=== PATIENT | female | born 1980 | race Caucasian/White ===

== ENCOUNTER 2018-09-25 09:27 | Observation (INO) ==
[2018-09-25] MEDS ORDERED: Aspirin 81 MG TAB.CHEW PO ONE (09:53)
--- NOTE | 2018-09-25 10:06 | Emergency Department Note ---
Disposition Clinical Impression: Chest pain Qualifiers: Chest pain type: unspecified Qualified Code(s): R07.9 - Chest pain, unspecified Disposition: Admitted As Inpatient Condition: Fair Referrals: NONE,PCP [Non-Partnered Physician] - Time of Disposition: 11:59 Chest Pain HPI - General Chief Complaint: ED Chest Pain Stated Complaint: chest pain Time Seen by Provider: 09/25/18 09:33 Source: patient Mode of arrival: ambulatory Limitations: no limitations Vital Signs Reviewed: Yes Nursing Notes Reviewed: Yes - History of Present Illness HPI Narrative: 37-year-old female history of cardiomyopathy as well as hypercholesterolemia and CHF presents to the emergency department for chest pain is been going on for 3 days. Patient states it is left-sided radiating into the left arm said it has been unchanged and continued for 3 days. She does see cardiology last saw them one year ago where she did have heart catheterization that showed 15% blockage and ultrasound prior to that that showed normal EF and normal size chambers. Patient had cardiomyopathy after delivering her child at 19 years old has not lee d any problems since then. She does not take any medications including a statin, aspirin, nitroglycerin. She has not seen her java websphere developer since that time. Said that she does not like physicians and does not like going to them. Patient describes the chest pain as 4 out of 10 radiating to left arm dull ache nothing seems to make a better where she is not short of breath and there is no exertional dyspnea. Otherwise no complaints including fevers, chills, nausea, vomiting, shortness of breath, abdominal pain, headache, blurry vision, neck pain, back pain, change in bowel monitor, pain with urination, pain or tingling in any arms or legs or generalized weakness. Severity scale (1-10): 8 - Related Data Home Medications Medication Instructions Recorded Confirmed Aspirin 81 mg PO DAILY 03/15/17 03/15/17 Isosorbide MONOnitrate (24 HR) 30 mg PO DAILY 03/15/17 03/15/17 [Imdur] Previous Rx's Medication Instructions Recorded Albuterol Sulfate [Albuterol 2 puff IH QID #1 inhaler 07/17/18 Inhaler] Azithromycin [Azithromycin 6-Tab 250 mg PO PER PKG DI #6 tab 07/17/18 Pack] Benzonatate [Tessalon] 200 mg PO TID PRN #20 capsule 07/17/18 predniSONE [PredniSONE] 20 mg PO BID #10 tablet 07/17/18 Allergies Allergy/AdvReac Type Severity Reaction Status Date / Time No Known Allergies Allergy Verified 07/17/18 16:03 All systems ED: reviewed and negative except as stated. 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 - Social History Smoking Status: Current every day smoker Alcohol use: Reports: none Drug use: Reports: marijuana Physical Exam - General Limitations: no limitations General appearance: alert - Head Head exam: atraumatic, normocephalic, normal inspection - Eye Eye exam: Present: normal appearance, PERRL, EOMI - ENT ENT exam: normal exam, normal oropharynx, mucous membranes moist - Neck Neck exam: Present: normal inspection, full ROM, trachea midline - Chest Chest inspection: Present: normal inspection, symmetric chest wall rise - Respiratory Respiratory exam: Present: normal lung sounds bilaterally. Absent: respiratory distress, wheezes, stridor, accessory muscle use - Cardiovascular Cardiovascular exam: Present: regular rate, normal rhythm, normal heart sounds - Abdominal Exam Abdominal exam: Present: soft, Non-Tender, normal bowel sounds. Absent: tenderness, distention, guarding, rebound, rigidity - Extremities Exam Extremities exam: Present: normal inspection, full ROM. Absent: tenderness, pedal edema - Expanded Lower Extremity Exam Neurovascular/Tendon exam: Absent: motor deficit, sensory deficit, tendon deficit - Back Exam Back exam: Present: normal inspection, full ROM. Absent: tenderness, CVA tenderness (R), CVA tenderness (L) - Neurological Exam Neurological exam: Present: alert, oriented X3 - Skin Skin exam: Present: warm, dry, intact, normal color Course Course Narrative: Liter normal chest pain workup including CBC, BMP, troponin as well as chest x- ray EKG and we will give patient full dose aspirin. Disposition pending results - Consultations Consultation #1: Spoke with on-call cardiology who said due to patient not having follow-up she is missed the last 3 or 4 appointment and no showed they feel they getting a work. The hospital would be more beneficial than doing an outpatient follow-up. Patient will be admitted to the hospital service with cardiology consult they recommend echocardiogram to be done. Time: 11:25 Vital Signs Temperature 97.9 F 09/25/18 09:29 Pulse Rate 19 09/25/18 09:29 Respiratory Rate 68 09/25/18 09:29 Blood Pressure 128/77 09/25/18 09:29 O2 Sat by Pulse Oximetry 98 09/25/18 09:29 Temperature 97.9 F 09/25/18 09:41 Pulse Rate 19 09/25/18 09:41 Respiratory Rate 68 09/25/18 09:41 Blood Pressure 128/77 09/25/18 09:41 O2 Sat by Pulse Oximetry 98 09/25/18 09:41 Oxygen Delivery Oxygen Delivery Room Air Chest Pain - MDM Narrative Medical decision making narrative: 37-year-old female here with chest pain. All labs came back negative troponin negative chest x-ray and EKG had no acute findings. I spoke with the java websphere developer as she does followed by cardiology they recommended admission for echocardiogram and further cardiac workup due to patient having very poor follow-up and missing appointments recently. I spoke with the patient she does agree at this plan as well per patient did receive aspirin. She is not having much chest pain currently at this times a did not give him nitroglycerin. Patient is stable. There is no tachycardia no shortness of breath no signs of pulmonary embolism so d-dimer and CT and she will were not ordered. I spoke with the hospitalist Dr. Beebe who agreed to admit the patient to their service. Patient's admitted in stable condition does have cardiac consultation ordered. Chest X-Ray 09/25/18 09:35 IMPRESSION: No acute cardiopulmonary abnormality. D/ / Mike Mendez MD / Mike Mendez MD Interpreting Provider: Mike Mendez MD - Medical Records Medical records reviewed: Yes I reviewed the patient's medical records. - Lab Data Lab results reviewed: Yes I reviewed the patient's lab results. Result diagrams: 09/25/18 10:27 09/25/18 10:27 Lab Results 09/25/18 09/25/18 Range/Units 10:27 10:27 WBC 5.6 (4.3-11.1) K/mcL RBC 4.04 (3.82-4.97) M/mcL Hgb 13.7 (11.5-15.4) g/dL Hct 40.4 (35.3-44.9) % MCV 100.0 (83.0-100.0) fL MCH 33.9 H (28.0-33.3) pg MCHC 33.9 (31.6-35.5) g/dL RDW 12.1 (11.5-14.5) % Plt Count 144 (140-400) K/mcL MPV 9.5 (9.4-12.4) fL Immature Gran % 0.2 (0-4) % Seg Neutrophils % 56.6 % Lymphocytes % 33.0 % Monocytes % 7.9 % Eosinophils % 1.6 % Basophils % 0.7 % Neutrophils # 3.2 (1.6-8.9) K/mcL Lymphocytes # 1.8 (0.6-4.6) K/mcL Monocytes # 0.4 (0.0-1.3) K/mcL Eosinophils # 0.1 (0.0-0.6) K/mcL Basophils # 0.0 (0.0-0.2) K/mcL Sodium 140 (136-145) mEq/L Potassium 3.7 (3.5-5.1) mEq/L Chloride 106 (98-107) mEq/L Carbon Dioxide 26 (23-29) mEq/L BUN 13 (6-20) mg/dL Creatinine 0.87 (0.60-1.20) mg/dL Est GFR ( Amer) > 60 (> 60) Est GFR (Non-Af Amer) > 60 (> 60) BUN/Creatinine Ratio 15 (6-26) Glucose 82 (70-105) mg/dL Calculated Osmolality 289 (280-300) Calcium 9.0 (8.6-10.3) mg/dL Troponin I < 0.03 (< 0.04) ng/mL Lipase 14 (11-82) Units/L - Radiology Data Radiology results reviewed: Yes I reviewed the patient's radiology results. - EKG Data EKG attestation: Yes I reviewed and interpreted this EKG. EKG results narrative: EKG done at 0 945 review myself and the attending shows sinus rhythm at a rate of 63, HI interval 126, QRS 12, QTC 499. Is no acute ST changes no acute T-wave changes nor sent ischemia. No hypertrophy, heart and, heart block. No WPW/Brugada/HOCM. EKG otherwise unchanged when compared with old one done 02/02/80 Heart Score - Score History: Moderately Suspicious EKG: Normal Age: Less than 45 Risk Factors: Equal/Greater than 3 risk factor or history of atherosclerotic disease Troponin: Less than normal limit HEART Score Total: 3
--- NOTE | 2018-09-25 10:21 | Emergency Department Note ---
Disposition Clinical Impression: Chest pain Disposition: Admitted As Inpatient Condition: Fair General Adult HPI - General Chief complaint: ED Chest Pain Stated complaint: chest pain Time Seen by Provider: 09/25/18 09:33 Source: patient Mode of arrival: ambulatory Limitations: no limitations Nursing Notes Reviewed: Yes Vital Signs Reviewed: Yes - History of Present Illness Pain Scale: 8 - Related Data Home Medications Medication Instructions Recorded Confirmed Multivitamin [One Daily 1 tab PO DAILY 09/25/18 09/25/18 Multivitamin] Multivitamin/Folic Acid/Biotin 1 tab PO DAILY 09/25/18 09/25/18 [Hair, Skin and Nails Tablet] RX: Ferrous Sulfate 325 mg PO DAILY 09/25/18 09/25/18 Allergies Allergy/AdvReac Type Severity Reaction Status Date / Time No Known Allergies Allergy Verified 09/25/18 12:54 Past Medical History - Past Medical History Medical history: Reports: CHF, other Psychiatric history: Reports: anxiety 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 - Social History Smoking Status: Current every day smoker Smokeless Tobacco Status: No Alcohol use: Reports: none Drug use: Reports: marijuana Physical Exam - General Limitations: no limitations General appearance: alert Course Vital Signs Temperature 97.9 F 09/25/18 09:29 Pulse Rate 19 09/25/18 09:29 Respiratory Rate 68 09/25/18 09:29 Blood Pressure 128/77 09/25/18 09:29 O2 Sat by Pulse Oximetry 98 09/25/18 09:29 Temperature 98.5 F 09/25/18 15:59 Pulse Rate 59 09/25/18 15:59 Respiratory Rate 18 09/25/18 15:59 Blood Pressure 136/78 09/25/18 15:59 O2 Sat by Pulse Oximetry 100 09/25/18 15:59 Oxygen Delivery Oxygen Delivery Room Air Medical Decision Making - [facility] Narrative Medical decision making narrative: Chest X-Ray 09/25/18 09:35 IMPRESSION: No acute cardiopulmonary abnormality. D/ / Mike Mendez MD / Mike Mendez MD Interpreting Provider: Mike Mendez MD 138 hours: Spoke with cardiology they like to admit the patient to the hospital she has been noncompliant with follow-up. Patient's in agreement with this plan. We will page hospitalist for admission with cardiology consult. - Lab Data Result diagrams: 09/25/18 10:27 09/25/18 10:27 Lab Results 09/25/18 09/25/18 Range/Units 10:27 10:27 WBC 5.6 (4.3-11.1) K/mcL RBC 4.04 (3.82-4.97) M/mcL Hgb 13.7 (11.5-15.4) g/dL Hct 40.4 (35.3-44.9) % MCV 100.0 (83.0-100.0) fL MCH 33.9 H (28.0-33.3) pg MCHC 33.9 (31.6-35.5) g/dL RDW 12.1 (11.5-14.5) % Plt Count 144 (140-400) K/mcL MPV 9.5 (9.4-12.4) fL Immature Gran % 0.2 (0-4) % Seg Neutrophils % 56.6 % Lymphocytes % 33.0 % Monocytes % 7.9 % Eosinophils % 1.6 % Basophils % 0.7 % Neutrophils # 3.2 (1.6-8.9) K/mcL Lymphocytes # 1.8 (0.6-4.6) K/mcL Monocytes # 0.4 (0.0-1.3) K/mcL Eosinophils # 0.1 (0.0-0.6) K/mcL Basophils # 0.0 (0.0-0.2) K/mcL Sodium 140 (136-145) mEq/L Potassium 3.7 (3.5-5.1) mEq/L Chloride 106 (98-107) mEq/L Carbon Dioxide 26 (23-29) mEq/L BUN 13 (6-20) mg/dL Creatinine 0.87 (0.60-1.20) mg/dL Est GFR ( Amer) > 60 (> 60) Est GFR (Non-Af Amer) > 60 (> 60) BUN/Creatinine Ratio 15 (6-26) Glucose 82 (70-105) mg/dL Calculated Osmolality 289 (280-300) Calcium 9.0 (8.6-10.3) mg/dL Troponin I < 0.03 (< 0.04) ng/mL Lipase 14 (11-82) Units/L Attestation Statement - Attestation Attestation: This documentation is done with the assistance of Dragon dictation. Despite efforts made to ensure accuracy, there may be inaccuracies in occupational therapy supervisor or spelling and typographical errors. I examined this patient and my medical decision-making was reviewed with the Resident Physician. I agree with the documented findings, disposition and treatment plan as described except to the extent set forth below. Patient seen and evaluated today by Dr. Hale and myself, I agree with his evaluation and management plan, supervise care the patient's stay. Patient's had intermittent chest pain. She except for history with cardiomyopathy after and cardiac arrest. She is a bit anxious today but seems comfortable. Regular cardiac workup on her and reassess. She also seen cardiology but she is not happy with the hot header operator cc and somewhat talked her about that also should she need outpatient follow-up. Chest X-Ray 09/25/18 09:35
[2018-09-25 10:53] LABS: Basophils % 0.7 %; Eosinophils # 0.1 K/mcL (0.0-0.6); Eosinophils % 1.6 %; Hematocrit 40.4 % (35.3-44.9); Hemoglobin 13.7 g/dL (11.5-15.4); Immature Granulocytes % 0.2 % (0-4); Lymphocytes # 1.8 K/mcL (0.6-4.6); Mean Corpuscular HGB Conc 33.9 g/dL (31.6-35.5); Mean Corpuscular Hemoglobin 33.9 pg (28.0-33.3); Mean Platelet Volume 9.5 fL (9.4-12.4); Monocytes # 0.4 K/mcL (0.0-1.3); Monocytes % 7.9 %; Neutrophils # 3.2 K/mcL (1.6-8.9); Platelet Count 144 K/mcL (140-400); Red Blood Count 4.04 M/mcL (3.82-4.97); Red Cell Distribution Width 12.1 % (11.5-14.5); Segmented Neutrophils % 56.6 %
[2018-09-25 11:14] LABS: BUN/Creatinine Ratio 15 (6-26); Blood Urea Nitrogen 13 mg/dL (6-20); Carbon Dioxide 26 mEq/L (23-29); Chloride 106 mEq/L (98-107); Glucose 82 mg/dL (70-105); Lipase 14 Units/L (11-82); Osmolality,Calculated 289 (280-300); Potassium 3.7 mEq/L (3.5-5.1); Sodium 140 mEq/L (136-145); Troponin I < 0.03 ng/mL (< 0.04); eGFR For Non-African Americans > 60 (> 60)
--- NOTE | 2018-09-25 12:38 | Cardiology Consult Note ---
<Johanna Moralez Myra - Last Filed: 09/25/18 13:19> Date of Encounter: 09/25/18 Time of Encounter: 12:30 Assessment and Plan (1) Chest pain Current Visit: Yes Status: Acute Atypical chest pain symptoms. Troponin negative. No ST/T wave abnormalities. 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 Recent LHC February 2017: minimal, non-obstructive CAD. Will start asa and statin. TTE 11/2016: EF 60%, normal wall motion. Continue to trend troponin, ECGs, and observe telemetry overnight. Recommend TTE to evaluate structure and function. Will continue to follow. Qualifiers: Chest pain type: unspecified Qualified Code(s): R07.9 - Chest pain, unspecified (2) Hx of cardiomyopathy Current Visit: Yes Status: Acute Hx of cardiomyopathy 18 years ago, reports was hospitalized for nearly 45 days. Did not follow-up with Cardiology until 2011, underwent NST at Hospital in [place], nuclear stress test negative, gated EF=56%. Recent evaluation 2016; TTE 60% with normal wall motion, no significant valvular dysfunction. LHC demonstrated minimal one vessel CAD in February 2017. Does not take any routine medications. Appears euvolemic upon exam. Plan as stated above. Discussion w patient/family: The assessment and plan as outlined above was discussed with the patient and/or family members who expressed understanding and agreement. All questions were answered. Thank you for involving us in the care of your patient. Please call with any questions. The patient will be discussed and reviewed with Dr. Hennessy, changes to be made accordingly. History of Present Illness Consult date: 09/25/18 Requesting physician: Edwin Hale Consult reason: Chest pain Chief complaint: Chest pain History of present illness: Ms. Guadalupe is a 37 year old female with PMHx significant of recovered cardiomyopathy (18 years ago), tobacco and marijuana abuse who presented to the ED with complaints of chest pain that initially started x3 days ago. Chest discomfort described as retrosternal chest "soreness/achyness" that worsens with physical activity and emotional stress. Symptoms improve with rest (1-2 days). Reports she usually "bounces back" after these episodes but did not which prompted ED evaluation. Underwent thorough cardiac work-up February of 2017 with similar symptoms, felt to be noncardiac in etiology. Associated symptoms include facial swelling which typically improves as the day progresses. Upon arrival to ED, troponin negative. ECG without ST/T wave abnormalities. She is pain free upon exam. Only takes prn Naprosyn. Recent CV testing: Lexiscan nuclear 10/25/11: normal lexiscan myocardial perfusion study, gated EF=56% TTE 12/14/16: LVEF 50-55%, no significant valvular dysfunction LHC 04/14/18: minimal non-obstructive CAD (15% pRCA) Past Med Surg Social Fam HX - Past Medical History Attestation: Yes The following information was validated with the patient. Source: patient Medical history: cardiomyopathy (recovered (x18 years ago)), other Additional medical history: cardiomyopathy Psychiatric history: anxiety - Past Surgical History Additional surgical history: TUBAL LIGATION heart cath - Social History Smoking Status: Current every day smoker Smokeless Tobacco Status: No Alcohol use: none Drug use: marijuana - Family History Mother Living Status: Still Living Hx Family Cardiac Disorders: Yes (CAD) Father History Unknown: Yes Brother Living Status: Still Living Medications and Allergies Ferrous Sulfate 325 mg PO DAILY 09/25/18 [History] Multivitamin [One Daily Multivitamin] 1 tab PO DAILY 09/25/18 [History] Multivitamin/Folic Acid/Biotin [Hair, Skin and Nails Tablet] 1 tab PO DAILY 09/25/18 [History] Allergy/AdvReac Type Severity Reaction Status Date / Time No Known Allergies Allergy Verified 09/25/18 12:54 All Systems Review: The remainder of the systems were reviewed and are negative - Cardiovascular Cardiovascular: as per HPI Physical Examination Vital Signs, Last 4 Hours Temp Pulse Resp BP Pulse Ox 09/25/18 09:41 97.9 F 19 18 128/77 98 09/25/18 09:29 97.9 F 19 68 128/77 98 General: Conversant, No Apparent Distress HEENT: Atraumatic, Normocephaly, Mucus Membranes Moist Neck: No JVD, Normal carotid pulses Cardiac: Reg Rate and Rhythm, Normal S1 and S2, No Murmur Lungs: Normal Breath Sounds, No Wheeze, Rales, Rhonchi Neuro: Alert and responsive, No focal deficits noted Abdomen: Soft, Non-Tender Skin: No rashes noted on visualized skin Musculoskeletal: No Chest Wall Tenderness Extremities: No Clubbing, No Cyanosis, No Edema, Normal Pulses Results 09/25/18 10:27 09/25/18 10:27 Lab Results 09/25/18 09/25/18 10:27 10:27 WBC 5.6 Hgb 13.7 Hct 40.4 Plt Count 144 Sodium 140 Potassium 3.7 Chloride 106 Carbon Dioxide 26 BUN 13 Creatinine 0.87 Glucose 82 Calcium 9.0 Troponin I < 0.03 Lipase 14 - Imaging and Cardiology Echo: report reviewed Cardiac cath: report reviewed - EKG Interpretation EKG results cardiology: personally reviewed Consult Discharge Plan - Plan Referrals: NONE,PCP [Primary Care Provider] - <Khoi Hennessy - Last Filed: 09/25/18 16:35> Date of Encounter: 09/25/18 - Attending Attestation I have personally performed a face to face evaluation on this patient. I have reviewed and agree with the documented findings and care plan as documented by the EXTRACTING MACHINE OPERATOR. History and Exam by me shows: 37-year-old female with history of CAD and peripartum cardiomyopathy, presenting with atypical chest pain. Last cardiac catheter was 11/2016 revealing 15% proximal RCA disease. Recommend to trend troponins and obtain rest echocardiogram and exercise stress echocardiogram. Patient should be on aspirin 81 mg daily and moderate intensity statin. Counseled extensively on smoking cessation. Needs close cardiology follow-up. Thanks, Khoi Hennessy MD Assessment and Plan Discussion w patient/family: The assessment and plan as outlined above was discussed with the patient and/or family members who expressed understanding and agreement. All questions were answered. Thank you for involving us in the care of your patient. Please call with any questions. History of Present Illness History of present illness: Ms. Guadalupe is a 37 year old female All Systems Review: The remainder of the systems were reviewed and are negative Physical Examination Vital Signs, Last 4 Hours Temp Pulse Resp BP Pulse Ox 09/25/18 15:59 98.5 F 59 18 136/78 100 09/25/18 13:18 98.7 F 62 16 124/60 100 09/25/18 12:39 16 128/72 Results 09/25/18 10:27 09/25/18 10:27 Lab Results 09/25/18 09/25/18 09/25/18 10:27 10:27 14:45 WBC 5.6 Hgb 13.7 Hct 40.4 Plt Count 144 Sodium 140 Potassium 3.7 Chloride 106 Carbon Dioxide 26 BUN 13 Creatinine 0.87 Glucose 82 Calcium 9.0 Magnesium 1.6 Troponin I < 0.03 Lipase 14
--- NOTE | 2018-09-25 13:53 | Internal Med History&Physical ---
Date of Encounter: 09/25/18 Time of Encounter: 14:10 Internal Medicine - H&P: HPI Chief complaint: chest pain Admitted From: Home Plans for Post Hospital Care: Home History of present illness: Ms. Guadalupe is a 37 year old female with past medical history of cardiomyopathy, she reports cardiac arrest during labor 18 years ago, current smoker 11/2 PPD (started at 15 years old), and smokes THC. Pt presents with 3 day hx of chest pain. She states she does get CP from time to time off and on and they typically resolve without intervention. States this episode started about 3 days ago and has persisted hence why she came in to be evaluated. She states CP 8/p10 scale. She denies association with shortness. She states she does have [place] with increased activity at work and sometimes feels as though her heart is racing. Also states pain sometimes radiates to her left arm. she reports that she was on medication 18 years ago when she had the cardiac arrest but reports that her boyfriend at the time " told me I didn't need to take the meds so I stopped taking them." In ED WBC 5.6, Hgb 13.7, hct 40., plt 144. Na 140, K 3.7, BUN 13, Cr 0.87. Lipase 14. Chest x ray XR/XR chest 1V portable IMPRESSION: No acute cardiopulmonary abnormality. Past Med Surg Social Fam HX - Past Medical History Medical history: cardiomyopathy, other Additional medical history: cardiomyopathy Psychiatric history: anxiety - Past Surgical History Additional surgical history: TUBAL LIGATION heart cath - Social History Smoking Status: Current every day smoker Smokeless Tobacco Status: No Alcohol use: none Drug use: marijuana - Family History Mother Living Status: Still Living Hx Family Cardiac Disorders: Yes (CAD) Father History Unknown: Yes Brother Living Status: Still Living Internal Medicine - H&P: Meds Ferrous Sulfate 325 mg PO DAILY 09/25/18 [History] Multivitamin [One Daily Multivitamin] 1 tab PO DAILY 09/25/18 [History] Multivitamin/Folic Acid/Biotin [Hair, Skin and Nails Tablet] 1 tab PO DAILY 09/25/18 [History] Allergy/AdvReac Type Severity Reaction Status Date / Time No Known Allergies Allergy Verified 09/25/18 12:54 All Systems PM: A 10-system review of systems was performed and is negative for pertinent findings except as documented above in the HPI. - Constitutional Vitals: Temp Pulse Resp BP Pulse Ox 98.7 F 62 16 124/60 100 09/25/18 13:18 09/25/18 13:18 09/25/18 13:18 09/25/18 13:18 09/25/18 13:18 Exam: General: Conversant, No Apparent Distress, Alert and oriented x 3. HEENT: Atraumatic, Normocephaly, Mucus Membranes Moist Neck: No JVD, Normal carotid pulses Cardiac: Reg Rate and Rhythm, Normal S1 and S2, No Murmur Lungs: Normal Breath Sounds, No Wheeze, Rales, Rhonchi Neuro: Alert and responsive, No focal deficits noted Abdomen: Soft, Non-Tender Skin: No rashes noted on visualized skin Musculoskeletal: No Chest Wall Tenderness Extremities: No Clubbing, No Cyanosis, No Edema, Normal Pulses Internal Med - H&P Results - Labs CBC & Chem 7: 09/25/18 10:27 09/25/18 10:27 Labs: Short CBC 09/25/18 Range/Units 10:27 WBC 5.6 (4.3-11.1) K/mcL Hgb 13.7 (11.5-15.4) g/dL Hct 40.4 (35.3-44.9) % Plt Count 144 (140-400) K/mcL Neutrophils # 3.2 (1.6-8.9) K/mcL BMP 09/25/18 10:27 Sodium 140 Potassium 3.7 Chloride 106 Carbon Dioxide 26 BUN 13 Creatinine 0.87 Glucose 82 Calcium 9.0 Cardiac Enzymes 09/25/18 Range/Units 10:27 Troponin I < 0.03 (< 0.04) ng/mL - Impressions ITS Impressions Chest X-Ray 09/25/18 09:35 IMPRESSION: No acute cardiopulmonary abnormality. D/ / Mike Mendez MD / Mike Mendez MD Interpreting Provider: Mike Mendez MD - Assessment and plan (1) Chest pain Current Visit: Yes Status: Acute Assessment and plan: Pt seen by cardiology and recommend cycle troponin for now. Qualifiers: Chest pain type: unspecified Qualified Code(s): R07.9 - Chest pain, unspecified (2) Hx of cardiomyopathy Current Visit: Yes Status: Acute Assessment and plan: Hx of cardiomyopathy 18 years ago, reported that she was hospitalized for nearly 45 days. Did not follow-up with Cardiology until 2011, underwent nuclear stress test at Hospital in [place], and it was negative, gated EF=56%. Recent [facility] February 2017: minimal, non-obstructive CAD. TTE 11/2016: EF 60%, normal wall motion. Cardiology starting on ASA and low dose statin. - Time Spent With Patient Total time spent is greater than 50% in coordination of care (as documented) at patient's floor/unit and/or counseling patient: 25 - 35 minutes
[2018-09-25] MEDS ORDERED: *HR* Promethazine 25 MG/ML VIAL IVP PRN (14:31)
[2018-09-25] MEDS ORDERED: Naloxone 0.4 MG/ML INJ IVP PRN (14:31)
[2018-09-25] MEDS ORDERED: Nitroglycerin 0.4 MG TAB.SUBL SL PRN (14:31)
[2018-09-25] MEDS ORDERED: Acetaminophen 325 MG TABLET PO PRN (14:31)
[2018-09-25] MEDS ORDERED: *HR* HYDROcodone/Acet 5/325 mg TABLET PO PRN (14:34)
[2018-09-25] MEDS ORDERED: Nicotine 21 MG PATCH.TD24 TD ONE (17:01)
[2018-09-26 03:34] LABS: Basophils # 0.1 K/mcL (0.0-0.2); Basophils % 0.8 %; Eosinophils # 0.3 K/mcL (0.0-0.6); Eosinophils % 4.6 %; Hematocrit 39.5 % (35.3-44.9); Hemoglobin 13.2 g/dL (11.5-15.4); Immature Granulocytes % 0.2 % (0-4); Lymphocytes # 2.1 K/mcL (0.6-4.6); Lymphocytes % 32.7 %; Mean Corpuscular HGB Conc 33.4 g/dL (31.6-35.5); Mean Corpuscular Hemoglobin 32.7 pg (28.0-33.3); Mean Corpuscular Volume 97.8 fL (83.0-100.0); Mean Platelet Volume 9.5 fL (9.4-12.4); Monocytes # 0.6 K/mcL (0.0-1.3); Monocytes % 8.5 %; Neutrophils # 3.5 K/mcL (1.6-8.9); Platelet Count 140 K/mcL (140-400); Red Blood Count 4.04 M/mcL (3.82-4.97); Red Cell Distribution Width 12.1 % (11.5-14.5); Segmented Neutrophils % 53.2 %
[2018-09-26 03:42] LABS: Prothrombin Time 11.7 Seconds (9.4-12.1)
[2018-09-26 03:55] LABS: Alanine Aminotransferase 8 Units/L (7-52); Albumin 3.7 g/dL (3.5-5.7); Albumin/Globulin Ratio 1.8 (1.1-2.2); Alkaline Phosphatase 50 Units/L (34-104); Aspartate Amino Transferase 12 Units/L (13-39); BUN/Creatinine Ratio 18 (6-26); Bilirubin,Total 0.4 mg/dL (0.3-1.0); Blood Urea Nitrogen 15 mg/dL (6-20); Carbon Dioxide 24 mEq/L (23-29); Chloride 110 mEq/L (98-107); Globulin 2.1 g/dL (2.4-3.5); Glucose 87 mg/dL (70-105); Magnesium 1.8 mg/dL (1.6-2.6); Osmolality,Calculated 292 (280-300); Potassium 4.1 mEq/L (3.5-5.1); Sodium 141 mEq/L (136-145); Total Protein 5.8 g/dL (6.4-8.9); eGFR For Non-African Americans > 60 (> 60)
[2018-09-26] MEDS ORDERED: *HR* LORazepam 0.5 MG TABLET PO ONE (08:55)
[2018-09-26] MEDS ORDERED: Aspirin 81 MG TAB.CHEW PO SCH ×2 (09:00)
[2018-09-26 11:24] VITALS: BP 137/81
--- NOTE | 2018-09-26 12:38 | Cardiology Progress Note ---
Date of Encounter: 09/26/18 Time of Encounter: 12:30 Assessment and Plan (1) Chest pain Current Visit: Yes Status: Acute Atypical chest pain symptoms. Troponin negative. No ST/T wave abnormalities. 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 Cardiac risk factors include tobacco use and family history. Recent LHC February 2017: minimal, non-obstructive CAD. Start asa and statin. TTE 11/2016: EF 60%, normal wall motion. Stress echo shows no WMA and preserved EF. Noted that she did not meet predicted HR. No further testing recommended at this time. Reviewed with patient. Out-pt f/u recommended. Cardiology will sign off. Pt agrees with plan. Qualifiers: Chest pain type: unspecified Qualified Code(s): R07.9 - Chest pain, unspecified (2) Hx of cardiomyopathy Current Visit: Yes Status: Acute Hx of cardiomyopathy 18 years ago, reports was hospitalized for n early 45 days. Did not follow-up with Cardiology until 2011, underwent NST at Hospital in [place], nuclear stress test negative, gated EF=56%. Recent evaluation 2016; TTE 60% with normal wall motion, no significant valvular dysfunction. TTE this admit shows preserved EF . LVEF 55%. Normal left ventricular diastolic function. Normal right ventricular structure and function. Mild tricuspid regurgitation. No pulmonary hypertension. LHC demonstrated minimal one vessel CAD in February 2017. Recommend smoking cessation. Healthy heart diet and exercise. Discussion w patient/family: The assessment and plan as outlined above was discussed with the patient and/or family members who expressed understanding and agreement. All questions were answered. Thank you for involving us in the care of your patient. Please call with any questions. Subjective Principal diagnosis: chest pain Interval history: Patient completed stress echo this morning. She exercised for 9 minutes. C/o chest pain with heavy exertion since middle school. Objective Vital Signs, Last 4 Hours Temp Pulse Resp BP Pulse Ox 09/26/18 11:21 97.6 F 57 17 137/81 96 General: Conversant, No Apparent Distress HEENT: Atraumatic, Normocephaly, Mucus Membranes Moist Neck: No JVD, Normal carotid pulses Cardiac: Reg Rate and Rhythm, Normal S1 and S2, No Murmur Lungs: Normal Breath Sounds, No Wheeze, Rales, Rhonchi Neuro: Alert and responsive, No focal deficits noted Abdomen: Soft, Non-Tender Skin: No rashes noted on visualized skin Musculoskeletal: No Chest Wall Tenderness Extremities: No Clubbing, No Cyanosis, No Edema, Normal Pulses Results 09/26/18 03:20 09/26/18 03:20 Lab Results 09/25/18 09/25/18 09/25/18 14:45 16:17 20:45 WBC Hgb Hct Plt Count INR D-Dimer 328 Sodium Potassium Chloride Carbon Dioxide BUN Creatinine Glucose Calcium Magnesium 1.6 Total Bilirubin AST ALT Alkaline Phosphatase Troponin I < 0.03 09/26/18 09/26/18 09/26/18 03:20 03:20 03:20 WBC 6.5 Hgb 13.2 Hct 39.5 Plt Count 140 INR 1.0 D-Dimer Sodium Potassium Chloride Carbon Dioxide BUN Creatinine Glucose Calcium Magnesium Total Bilirubin AST ALT Alkaline Phosphatase Troponin I < 0.03 09/26/18 03:20 WBC Hgb Hct Plt Count INR D-Dimer Sodium 141 Potassium 4.1 Chloride 110 H Carbon Dioxide 24 BUN 15 Creatinine 0.82 Glucose 87 Calcium 9.0 Magnesium 1.8 Total Bilirubin 0.4 AST 12 L ALT 8 Alkaline Phosphatase 50 Troponin I - Imaging and Cardiology Stress Test: report reviewed Echo: report reviewed - EKG Interpretation EKG results cardiology: personally reviewed Consult Discharge Plan - Plan Instructions: Atorvastatin (By mouth), Chest Pain (DC) Referrals: Tammi Acevedo [Resident] - 09/29/18 4:00 pm Prescriptions: Atorvastatin [Lipitor] 40 mg PO HS 30 Days #30 tablet
--- NOTE | 2018-09-26 14:56 | Discharge Summary ---
- NOTES TO OUTPATIENT PROVIDER Notes to Outpatient Provider: PCP in 5 to 7 days Orders not resulted at time of discharge: Pending orders 09/26/18 14:51 Urine tox screen [Drug Screen, Urine] [UCHEM] Stat Date of Encounter: 09/26/18 Time of Encounter: 14:54 - Discharge Diagnosis (1) Chest pain Priority: Primary Status: Acute Assessment and Plan: Pt seen by cardiology and recommend cycle troponin. Troponin negative x 3 and stress echo neg. Pt is to follow up out pt with her PCP. Qualifiers: Chest pain type: unspecified Qualified Code(s): R07.9 - Chest pain, unspecified (2) Hx of cardiomyopathy Priority: Secondary Status: Acute Assessment and Plan: Hx of cardiomyopathy 18 years ago, reported that she was hospitalized for nearly 45 days. Did not follow-up with Cardiology until 2011, underwent nuclear stress test at Hospital in [place], and it was negative, gated EF=56%. Recent [facility] February 2017: minimal, non-obstructive CAD. TTE 11/2016: EF 60%, normal wall motion. Cardiology started on ASA and low dose statin which she will be discharged on. Pt's stress echo on this admission negative. Follow up out pt with PCP as scheduled. (3) Tobacco abuse Priority: Secondary Status: Acute Assessment and Plan: Pt left hospital floor multiple times to smoke. She was offered nicotine patch. Cessation strongly advised. Hospital course: History of present illness: Dr. Palacios. Ms. Guadalupe is a 37 year old female with past medical history of cardi omyopathy, she reports cardiac arrest during labor 18 years ago, current smoker 11 PPD (started at 15 years old), and smokes THC. Pt presents with 3 day hx of chest pain. She states she does get CP from time to time off and on and they typically resolve without intervention. States this episode started about 3 days ago and has persisted hence why she came in to be evaluated. She states CP 8/p10 scale. She denies association with shortness. She states she does have CANNON with increased activity at work and sometimes feels as though her heart is racing. Also states pain sometimes radiates to her left arm. she reports that she was on medication 18 years ago when she had the cardiac arrest but reports that her boyfriend at the time " told me I didn't need to take the meds so I stopped taking them." Discharge discussed with: patient - Time Spent with Patient Total time spent providing and/or coordinating discharge services: Greater than 30 minutes - Discharge Medications Home Medications: Ferrous Sulfate 325 mg PO DAILY 09/25/18 [History] Multivitamin [One Daily Multivitamin] 1 tab PO DAILY 09/25/18 [History] Multivitamin/Folic Acid/Biotin [Hair, Skin and Nails Tablet] 1 tab PO DAILY 09/25/18 [History] Aspirin 81 mg PO DAILY tab.chew 09/26/18 [Rx] Atorvastatin [Lipitor] 40 mg PO HS 30 Days #30 tablet 09/26/18 [Rx] Allergies/Adverse Reactions: Allergy/AdvReac Type Severity Reaction Status Date / Time No Known Allergies Allergy Verified 09/25/18 12:54 Date of admission: 09/25/18 12:14 Primary care physician: PCP NONE Consults: 09/25/18 11:28 Consult to Cardiology [CONS] Stat Comment: Consulting Provider: Cardiology Shantell Reason for Consult: hx of arrest with chest pain and cardiomyopathy Time Notified: 11:29 Call Completed: Yes Discharging clinician: Xochitl Palacios Anticipated date of discharge: 09/26/18 - Constitutional Vitals: Temp Pulse Resp BP Pulse Ox 97.6 F 57 17 137/81 96 09/26/18 11:21 09/26/18 11:21 09/26/18 11:21 09/26/18 11:21 09/26/18 11:21 Exam: Exam: General: Conversant, No Apparent Distress, Alert and oriented x 3. HEENT: Atraumatic, Normocephaly, Mucus Membranes Moist Neck: No JVD, Normal carotid pulses Cardiac: Reg Rate and Rhythm, Normal S1 and S2, No Murmur Lungs: Normal Breath Sounds, No Wheeze, Rales, Rhonchi Neuro: Alert and responsive, No focal deficits noted Abdomen: Soft, Non-Tender Skin: No rashes noted on visualized skin Musculoskeletal: No Chest Wall Tenderness Extremities: No Clubbing, No Cyanosis, No Edema, Normal Pulses - Patient Status Disposition: Home, Self-Care Condition: Fair Overall status at discharge: patient is back to baseline - Discharge Instructions Follow Up With: Tammi Acevedo [Resident] - 09/29/18 4:00 pm - Diet and Activity Activity: increase activity as tolerated
[2018-09-26 15:18] LABS: Amphetamine Screen,Urine Negative ng/mL (Cutoff=1000); Barbiturate Screen,Urine Negative ng/mL (Cutoff=200); Benzodiazepines Screen,Urine Negative ng/mL (Cutoff=200); Cannabinoid Screen,Urine Positive ng/mL (Cutoff = 50); Cocaine Screen,Urine Negative ng/mL (Cutoff= 300); Opiate Screen,Urine Negative ng/mL (Cutoff=300); Phencyclidine Screen,Urine Negative ng/mL (Cutoff=25)
--- NOTE | 2018-09-26 21:09 | Electrocardiograph Report ---
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
== END 2018-09-26 15:32 | disposition home or self-care (01) ==
LOC: EMEROOARM 09:27 → 3BNU 09:27
PROVIDERS: ADMIT Internal Medicine; ATTEND Internal Medicine